=== PATIENT | male | born 1990 | race Caucasian/White ===

== ENCOUNTER → 2020-01-07 | Outpatient (CLI) | payer BC ==
--- NOTE | 2020-01-08 18:50 | CT ---
EXAMINATION TYPE: CT abdomen pelvis w con DATE OF EXAM: 01/07/2020 COMPARISON: NONE HISTORY: 29-year-old male with abdominal pain. Pt states he had a recent colonoscopy, showing a tortu lesa bowel TECHNIQUE: Contiguous axial scanning of the abdomen and pelvis following administration of 100 ml Iso naomy 300 IV contrast. Delayed images through the kidneys and coronal/sagittal reconstructions perform ed. CT DLP: 930.4 mGycm Automated exposure control for dose reduction was used. FINDINGS: LUNG BASES: No significant abnormality is appreciated. LIVER/GB: No significant abnormality is appreciated. PANCREAS: No significant abnormality is seen. SPLEEN: Tiny hilar splenule. No significant abnormality is seen. ADRENALS: No significant abnormality is seen. KIDNEYS: No significant abnormality is seen. LYMPH NODES: Scattered nonenlarged mesenteric lymph nodes measuring up to 60 m. BOWEL: No dilated small bowel, free fluid, or free air. Mild circumferential wall thickening distal transverse colon without any surrounding inflammation. Mild sigmoid diverticulosis. No pericolonic in flammatory changes. The distal sigmoid is tortuous and redundant. Mild stool burden. Normal appendix. PELVIS: Bladder urine distended. No abnormal fluid collection in the pelvis or pelvic lymphadenopathy . BONES: No osseous destructive process. IMPRESSION: 1. MILD CIRCUMFERENTIAL WALL THICKENING DISTAL TRANSVERSE COLON COULD RELATE TO UNDERDISTENTION OR NO NSPECIFIC MILD COLITIS. CLINICALLY CORRELATE. 2. SIGMOID DIVERTICULOSIS WITHOUT EVIDENCE FOR ACUTE DIVERTICULITIS. THE DISTAL SIGMOID COLON IS MILD LY REDUNDANT AND TORTUOUS.
== END | disposition home or self-care (01) ==
LOC: RADCTMAIN 14:29
PROVIDERS: ATTEND Internal Medicine Gastroenterology
DX: K57.30 Diverticulosis of large intestine without perforation or abscess without bleeding (principal)
CPT/HCPCS: 74177; Q9967

== ENCOUNTER → 2022-06-08 | Outpatient (CLI) | payer BC ==
[2022-06-08 16:14] LABS: Hepatitis B Surface Antigen Nonreactive (Nonreactive); Hepatitis C IgG Antibody Nonreactive (Nonreactive)
[2022-06-08 20:27] LABS: HIV 2 AB Non-Reactive (Non-Reactive); HIV AB P24 Non-Reactive (Non-Reactive); HIV P24 AG Non-Reactive (Non-Reactive)
[2022-06-09 15:53] LABS: C. trachomatis,PCR Negative (Neg,Equiv); Chlamydia trachomatis Source Urine; N. gonorrhoeae,PCR Negative (Neg,Equiv); Neisseria Source Urine
== END | disposition home or self-care (01) ==
LOC: LABWHC1 09:52
PROVIDERS: ATTEND Obstetrics & Gynecology Reproductive Endocrinology
DX: Z01.812 Encounter for preprocedural laboratory examination (principal); Z11.3 Encounter for screening for infections with a predominantly sexual mode of transmission; B19.9 Unspecified viral hepatitis without hepatic coma; Z22.4 Carrier of infections with a predominantly sexual mode of transmission
CPT/HCPCS: 36415; 86592; 86704; 86803; 87340; 87390; 87491; 87591

== ENCOUNTER → 2023-08-03 | Outpatient (CLI) | payer BC ==
[2023-08-03 15:22] LABS: Basophils # (A) 0.05 X 10*3/uL (0.00-0.10); Basophils % (A) 0.9 %; Eosinophils # (A) 0.24 X 10*3/uL (0.04-0.35); Eosinophils % (A) 4.5 %; HCT 46.9 % (39.6-50.0); HGB 15.4 g/dL (13.0-17.0); Lymphocytes % (A) 41.7 %; MCH 30.3 pg (27.0-32.0); MCHC 32.8 g/dL (32.0-37.0); MCV 92.3 FL (80.0-97.0); Mean Platelet Volume 9.2 FL (9.5-12.2); Monocytes % (A) 9.5 %; NRBC Per 100 WBC 0 X 10*3/uL (0.00-0.01); Neutrophils # (A) 2.24 X 10*3/uL (1.80-7.70); Neutrophils % (A) 42.5 %; Platelet Count 292 X 10*3/uL (140-440); RBC 5.08 X 10*6/uL (4.40-5.60); RDW 12.5 % (11.5-14.5); WBC 5.28 X 10*3/uL (4.50-10.00)
[2023-08-03 15:34] LABS: Homocysteine 12.2 UMOL/L (4.00-14.00); Thyroid Peroxidase Antibodies 25.8 U/mL (0.0-33.0)
[2023-08-03 15:43] LABS: ALT 20 U/L (10-49); AST 24 U/L (14-35); Albumin 5.1 g/dL (3.8-4.9); Albumin/Globulin Ratio 1.82 Ratio (1.60-3.17); Alkaline Phosphatase 44 U/L (41-126); Blood Urea Nitrogen 16.2 mg/dL (9.0-27.0); Calcium 9.9 mg/dL (8.7-10.3); Carbon Dioxide 27.3 mmol/L (21.6-31.8); Chloride 102 mmol/L (96-109); Chol/HDL Ratio 3.21 Ratio; GGT 15 U/L (0-73); Globulin 2.8 g/dL (1.6-3.3); Glucose 89 mg/dL (70-110); LDL Cholesterol,Calculated 123.4 mg/dL (0.0-131.0); Potassium 4.3 mmol/L (3.5-5.5); Sodium 141 mmol/L (135-145); T4, Free (Free Thyroxine) 1.16 ng/dL (0.80-1.80); Total Bilirubin 0.6 mg/dL (0.3-1.2); Total Protein 7.9 g/dL (6.2-8.2); Uric Acid 6.2 mg/dL (3.7-8.7); VLDL Calculation 14.98 mg/dL (5.00-40.00)
[2023-08-03 18:35] LABS: Insulin Level 4.9 mIU/mL (3.0-25.0)
[2023-08-11 04:39] LABS: Dihydrotestosterone 27 ng/dL (12-65)
== END | disposition home or self-care (01) ==
LOC: LABWHC1 07:55
PROVIDERS: ATTEND Obstetrics & Gynecology Obstetrics
DX: Z12.5 Encounter for screening for malignant neoplasm of prostate (principal); K58.0 Irritable bowel syndrome with diarrhea; E87.8 Other disorders of electrolyte and fluid balance, not elsewhere classified; E55.9 Vitamin D deficiency, unspecified; D64.9 Anemia, unspecified; E78.2 Mixed hyperlipidemia; M10.9 Gout, unspecified; L65.9 Nonscarring hair loss, unspecified; E06.3 Autoimmune thyroiditis; D51.8 Other vitamin B12 deficiency anemias; R74.8 Abnormal levels of other serum enzymes; R94.6 Abnormal results of thyroid function studies; R73.09 Other abnormal glucose; R79.82 Elevated C-reactive protein (CRP); E29.1 Testicular hypofunction
CPT/HCPCS: 36415; 80053; 80061; 82306; 82607; 82642; 82728; 82977; 83036; 83090; 83525; 84140; 84153; 84270; 84402; 84439; 84443; 84481; 84550; 85025; 86141; 86376; 86800

== ENCOUNTER 2024-02-27 11:51 | Day surgery (SDC) | payer BC ==
[~2024-02-27 11:51] MED LIST: LIDOCAINE 1% (10MG/ML) FOR IV START INTRADERMA PRN; ONDANSETRON 4 MG/2 ML VIAL IVP PRN
[2024-02-27] MEDS: LACTATED RINGERS 1,000 ML IV SCH (12:22)
[2024-02-27] MEDS: IV FLUID CONTINUATION 1,000 ML IV ONE (12:25)
[2024-02-27 12:28] VITALS: RESP 16; TEMP 97.4
[2024-02-27] MEDS ORDERED: PROPOFOL 10 MG/ML 20 ML VIAL IV ONE (12:34)
[2024-02-27] MEDS ORDERED: LIDOCAINE 1% INJ 10MG/ML (20 ML MDV) ONE (12:34)
--- NOTE | 2024-02-27 12:42 | P.PCN ---
Date of Procedure: 02/27/24 Procedure(s) Performed: BRIEF HISTORY: Patient is a 34-year-old, pleasant, white male scheduled to have endoscopy as a part evaluation of intermittent dysphagia to solids for the last 2 years duration. Symptoms are much worse in the last 2 weeks and often with rice and meat. He denies any heartburn. No dyne aphasia.. PROCEDURE PERFORMED: Esophagogastroduodenoscopy with biopsy. PREOPERATIVE DIAGNOSIS: Intermittent dysphagia to solids of 2 years duration. IV sedation per anesthesia. PROCEDURE: After informed consent was obtained, the patient was brought into the endoscopy unit. IV sedation was administered by Anesthesia under continuous monitoring. Initially the Olympus GIF-140 video endoscope was inserted into the mouth. Esophagus intubated without any difficulty. It was gradually advanced into the stomach and duodenum and carefully examined. The bulb and the second part of the duodenum appeared normal. Biopsies were done from the duodenum rule out celiac disease. The scope at this time was withdrawn to the stomach, adequately insufflated with air, and upon careful examination, mucosa of the antrum, areas of erythema consistent with gastritis and biopsies were done from this area. Mucosa body, cardia and the fundus appeared normal. The scope was then withdrawn into the esophagus. The GE junction was located at 43 cm from the incisors. The esophagus appeared normal. There were no erosions or ulcerations seen. Multiple biopsies were done from the mid and distal esophagus rule out eosinophilic esophagitis and the patient tolerated the procedure well. IMPRESSION: 1. Normal-appearing esophagus with no evidence of esophagitis or esophageal stricture status post multiple biopsies to rule out eosinophilic esophagitis. 2. Mild antral gastritis. RECOMMENDATIONS: The findings of this examination were discussed with the patient as well as his family. He was advised to follow-up with the biopsy results. In the meantime we will give him a trial of omeprazole 20 mg daily and was briefly educated about diet modification.
[2024-02-27 13:01] VITALS: BP 126/70; PULSE 63
== END 2024-02-27 13:19 | disposition home or self-care (01) ==
LOC: ORWHC2ENDO 11:51
PROVIDERS: ATTEND Internal Medicine Gastroenterology
CPT/HCPCS: 43239; 88305